=== PATIENT | male | born 1930 | race Caucasian/White ===

== ENCOUNTER 2018-07-22 11:58 | Day surgery (SDC) | payer MEDICARE ==
[2018-07-22] VITALS (9 sets, daily range): BP systolic 131–157; BP diastolic 65–90
[~2018-07-22] VITALS: Ht 172.7 cm; Wt 71.2 kg
[2018-07-22] MEDS ORDERED: sod bicarbonate 150mEq in D5W 1,150 ML IV ONE (12:20)
[2018-07-22] MEDS ORDERED: diphenhydrAMINE 25mg capsule PO ONE (12:20)
[2018-07-22] MEDS ORDERED: OMEG1CAP46 PO (12:42)
[2018-07-22] MEDS ORDERED: FLO0.4C PO (12:42)
[2018-07-22] MEDS ORDERED: ASPI81TA49 PO (12:42)
[2018-07-22] MEDS ORDERED: MULT-955 PO (12:42)
[2018-07-22] MEDS ORDERED: CHOL10002 PO (12:42)
[2018-07-22] MEDS ORDERED: FINA5TAB11 PO (12:42)
[2018-07-22] MEDS ORDERED: ATOR40TA PO (12:42)
[2018-07-22] MEDS ORDERED: ALLO100T PO (12:42)
[2018-07-22] MEDS ORDERED: RANI150C4 PO (12:42)
[2018-07-22] MEDS ORDERED: CARV-50 PO (12:42)
[2018-07-22 13:17] LABS: BASOPHILS % (AUTO) 0.5 % (0-1); EOSINOPHILS # (AUTO) 0.3 X10'3 (0-0.9); EOSINOPHILS % (AUTO) 5.4 % (0-6); HEMOGLOBIN 15.3 g/dl (14.0-17.9); LYMPHOCYTES # (AUTO) 1.7 X10'3 (1.1-4.8); LYMPHOCYTES % (AUTO) 26.2 % (21-51); MEAN CORPUSCULAR HEMOGLOBIN 30.8 PG (27.0-31.0); MEAN CORPUSCULAR VOLUME 90.5 FL (78-98); MEAN PLATELET VOLUME 9.5 FL (7.4-10.4); MONOCYTES # (AUTO) 0.5 X10'3 (0-0.9); MONOCYTES % (AUTO) 8.1 % (2-12); NEUTROPHILS # (AUTO) 3.8 X10'3 (1.8-7.7); NEUTROPHILS % (AUTO) 59.8 % (42-75); PLATELET COUNT 195 X10'3 (140-440); RED BLOOD COUNT 4.97 X10'6 (4.70-6.10); RED CELL DISTRIBUTION WIDTH 14.5 % (11.5-14.5); WHITE BLOOD COUNT 6.3 X10'3 (4.5-11.0)
[2018-07-22 13:32] LABS: ALBUMIN 3.9 G/DL (3.4-5.0); ANION GAP 10 (8-16); BLOOD UREA NITROGEN 16 MG/DL (7-18); BUN/CREATININE RATIO 17.8 (5.4-32.0); CALCIUM 9.1 MG/DL (8.5-10.1); CHLORIDE 104 MMOL/L (99-107); GLUCOSE 87 MG/DL (70-104); MAGNESIUM 1.9 MG/DL (1.5-2.4); POTASSIUM 3.7 MMOL/L (3.5-5.1); SODIUM 141 MMOL/L (135-145); TOTAL CARBON DIOXIDE 26.8 MMOL/L (24-32); eGFR 80 ML/MIN
[2018-07-22 13:33] LABS: INR 1.1 INR
[2018-07-22] MEDS ORDERED: iohexol 350MG/ML 100ml bottle IV ONE ×3 (14:07→15:46)
[2018-07-22] MEDS ORDERED: LIDOcaine 1% (10mg/ml)w/preservative injection 20ml MDV ONE (14:07)
[2018-07-22] MEDS ORDERED: iohexol 350 MG/ML 50ML vial IV ONE (14:07)
[2018-07-22] MEDS ORDERED: fentaNYL/PF 50MCG/1 ML 2ML syringe ONE (14:07)
[2018-07-22] MEDS ORDERED: midazolam 2 mg/2 ml injection ONE ×2 (14:07→15:49)
[2018-07-22] MEDS ORDERED: heparin 1,000unit/ml 10ml vial 10 ML ONE ×2 (14:47→15:41)
[2018-07-22] MEDS ORDERED: clopidogrel 300mg tablet ONE (16:04)
== END 2018-07-22 19:41 | disposition home or self-care (01) ==
LOC: SSTAY O 11:58
PROVIDERS: ATTEND Internal Medicine Cardiovascular Disease
DX: I25.119 Atherosclerotic heart disease of native coronary artery with unspecified angina pectoris (principal); I42.9 Cardiomyopathy, unspecified; I10 Essential (primary) hypertension; E78.5 Hyperlipidemia, unspecified; I44.7 Left bundle-branch block, unspecified; Z86.73 Personal history of transient ischemic attack (TIA), and cerebral infarction without residual deficits; Z98.890 Other specified postprocedural states
CPT/HCPCS: 36415; 80048; 83735; 85025; 85610; 93005; 93458; 99152; 99153; A6257; C1874; C1887; C9600; J1644; J2001; J2250; J3010; J7030; Q0163; Q9967; A4620; C1725; C1760; C1769; C1894

== ENCOUNTER 2018-08-09 09:06 | Day surgery (SDC) | payer MEDICARE ==
[2018-08-09] VITALS (10 sets, daily range): BP systolic 128–151; BP diastolic 62–83
[~2018-08-09] VITALS: Ht 172.7 cm; Wt 71.2 kg
[~2018-08-09 09:06] MED LIST: ALLO100T PO; ASPI81TA49 PO; ATOR40TA PO; CARV-50 PO; CHOL10002 PO; FINA5TAB11 PO; FLO0.4C PO; MULT-955 PO; OMEG1CAP46 PO; RANI150C4 PO
[2018-08-09] MEDS ORDERED: diphenhydrAMINE 25mg capsule PO PRN (09:35)
[2018-08-09] MEDS ORDERED: sod bicarbonate 150mEq in D5W 1,150 ML IV ONE (09:35)
[2018-08-09] MEDS ORDERED: CARV-50 PO (09:40)
[2018-08-09] MEDS ORDERED: CLOP75TA15 PO (09:44)
[2018-08-09] MEDS ORDERED: LOSA25TA96 PO (09:45)
[2018-08-09 10:17] LABS: BASOPHILS % (AUTO) 0.6 % (0-1); EOSINOPHILS # (AUTO) 0.4 X10'3 (0-0.9); EOSINOPHILS % (AUTO) 6.2 % (0-6); HEMATOCRIT 42.7 % (42.0-52.0); HEMOGLOBIN 14.4 g/dl (14.0-17.9); LYMPHOCYTES # (AUTO) 1.6 X10'3 (1.1-4.8); LYMPHOCYTES % (AUTO) 26.3 % (21-51); MEAN CORPUSCULAR HEMOGLOBIN 30.8 PG (27.0-31.0); MEAN CORPUSCULAR HGB CONC 33.6 % (33.0-36.5); MEAN CORPUSCULAR VOLUME 91.5 FL (78-98); MEAN PLATELET VOLUME 9.3 FL (7.4-10.4); MONOCYTES # (AUTO) 0.4 X10'3 (0-0.9); MONOCYTES % (AUTO) 6.5 % (2-12); NEUTROPHILS # (AUTO) 3.7 X10'3 (1.8-7.7); NEUTROPHILS % (AUTO) 60.4 % (42-75); PLATELET COUNT 186 X10'3 (140-440); RED BLOOD COUNT 4.67 X10'6 (4.70-6.10); RED CELL DISTRIBUTION WIDTH 14.5 % (11.5-14.5); WHITE BLOOD COUNT 6.1 X10'3 (4.5-11.0)
[2018-08-09] MEDS ORDERED: verapamil 2.5 mg/ml inj IV ONE (10:22)
[2018-08-09] MEDS ORDERED: nitroGLYCERIN-Tridil 50MG/D5W 250 ML IV ONE (10:22)
[2018-08-09] MEDS ORDERED: fentaNYL/PF 50MCG/1 ML 2ML syringe ONE (10:23)
[2018-08-09] MEDS ORDERED: midazolam 2 mg/2 ml injection ONE (10:23)
[2018-08-09] MEDS ORDERED: heparin 1,000unit/ml 10ml vial 10 ML ONE (10:23)
[2018-08-09] MEDS ORDERED: iohexol 350 MG/ML 50ML vial IV ONE (10:23)
[2018-08-09] MEDS ORDERED: iohexol 350MG/ML 100ml bottle IV ONE ×2 (10:23→11:25)
[2018-08-09 10:26] LABS: ALBUMIN 3.8 G/DL (3.4-5.0); ANION GAP 7 (8-16); BLOOD UREA NITROGEN 21 MG/DL (7-18); BUN/CREATININE RATIO 22.6 (5.4-32.0); CALCIUM 8.8 MG/DL (8.5-10.1); CHLORIDE 105 MMOL/L (99-107); CREATININE 0.93 MG/DL (0.60-1.10); GLUCOSE 85 MG/DL (70-104); MAGNESIUM 1.9 MG/DL (1.5-2.4); POTASSIUM 3.8 MMOL/L (3.5-5.1); SODIUM 140 MMOL/L (135-145); TOTAL CARBON DIOXIDE 28.2 MMOL/L (24-32); eGFR 77 ML/MIN
[2018-08-09 10:57] LABS: INR 1.1 INR; PROTHROMBIN TIME 11.1 SECONDS (9.0-12.0)
[2018-08-09] MEDS ORDERED: LIDOcaine 1% (10mg/ml)w/preservative injection 20ml MDV ONE (11:03)
== END 2018-08-09 15:50 | disposition home or self-care (01) ==
LOC: SSTAY O 09:06
PROVIDERS: ATTEND Internal Medicine Cardiovascular Disease
DX: I25.10 Atherosclerotic heart disease of native coronary artery without angina pectoris (principal); I10 Essential (primary) hypertension; E78.5 Hyperlipidemia, unspecified; I42.9 Cardiomyopathy, unspecified; I44.7 Left bundle-branch block, unspecified; Z86.73 Personal history of transient ischemic attack (TIA), and cerebral infarction without residual deficits; Z98.890 Other specified postprocedural states
CPT/HCPCS: 36415; 80048; 83735; 85025; 85610; 93005; 99152; 99153; C1874; C9600; C9601; J1644; J2001; J2250; J3010; Q0163; Q9967; A4620; C1725; C1769; J3490

== ENCOUNTER 2020-10-11 09:03 | Day surgery (SDC) | payer MEDICARE ==
[2020-10-11] VITALS (9 sets, daily range): BP systolic 130–161; BP diastolic 71–89
[~2020-10-11] VITALS: Ht 172.7 cm; Wt 72.5 kg
[~2020-10-11 09:03] MED LIST changes: +CLOP75TA15 PO; +LOSA25TA96 PO
[2020-10-11] MEDS ORDERED: MAGN400C PO (09:37)
[2020-10-11] MEDS ORDERED: FAMO-127 PO (09:37)
[2020-10-11] MEDS ORDERED: LOSA50TA3 PO (09:37)
[2020-10-11] MEDS ORDERED: NITR0.4T51 SL (09:37)
[2020-10-11] MEDS ORDERED: ceFAZolin 2gm in dextrose, iso 50 ML IV ONE (10:00)
[2020-10-11 10:05] LABS: BASOPHILS % (AUTO) 0.8 % (0-1); EOSINOPHILS # (AUTO) 0.3 X10'3 (0-0.9); EOSINOPHILS % (AUTO) 4.8 % (0-6); HEMATOCRIT 42.2 % (42.0-52.0); HEMOGLOBIN 14.4 g/dl (14.0-17.9); LYMPHOCYTES # (AUTO) 1.4 X10'3 (1.1-4.8); LYMPHOCYTES % (AUTO) 23.6 % (21-51); MEAN CORPUSCULAR HEMOGLOBIN 31.2 PG (27.0-31.0); MEAN CORPUSCULAR HGB CONC 34.2 g/dL (33.0-36.5); MEAN CORPUSCULAR VOLUME 91.3 FL (78-98); MEAN PLATELET VOLUME 9.2 FL (7.4-10.4); MONOCYTES # (AUTO) 0.5 X10'3 (0-0.9); MONOCYTES % (AUTO) 7.7 % (2-12); NEUTROPHILS # (AUTO) 3.7 X10'3 (1.8-7.7); NEUTROPHILS % (AUTO) 63.1 % (42-75); PLATELET COUNT 178 X10'3 (140-440); RED BLOOD COUNT 4.62 X10'6 (4.70-6.10); RED CELL DISTRIBUTION WIDTH 13.9 % (11.5-14.5); WHITE BLOOD COUNT 5.9 X10'3 (4.5-11.0)
[2020-10-11 10:12] LABS: ALBUMIN 3.8 G/DL (3.4-5.0); ANION GAP 6 (8-16); BLOOD UREA NITROGEN 15 MG/DL (7-18); BUN/CREATININE RATIO 15.3 (5.4-32.0); CALCIUM 9.1 MG/DL (8.5-10.1); CHLORIDE 106 MMOL/L (99-107); CREATININE 0.98 MG/DL (0.60-1.10); GLUCOSE 103 MG/DL (70-104); MAGNESIUM 2.1 MG/DL (1.5-2.4); POTASSIUM 4.3 MMOL/L (3.5-5.1); SODIUM 140 MMOL/L (135-145); TOTAL CARBON DIOXIDE 27.6 MMOL/L (24-32); eGFR 72 ML/MIN
[2020-10-11] MEDS ORDERED: proCHLORperazine 10 MG/2 ml inj ONE (10:40)
[2020-10-11] MEDS ORDERED: fentaNYL/PF 50MCG/1 ML 2ML syringe ONE ×2 (10:40→11:25)
[2020-10-11] MEDS ORDERED: LIDOcaine 1% W/epiNEPHrine 1:100,000 20ml vial ONE (10:40)
[2020-10-11] MEDS ORDERED: vancomycin 1,000mg inj ONE (10:40)
[2020-10-11] MEDS ORDERED: midazolam 2 mg/2 ml injection ONE ×2 (10:40→11:25)
[2020-10-11] MEDS ORDERED: iohexol 350 MG/ML 50ML vial IV ONE (11:27)
[2020-10-11] MEDS ORDERED: iohexol 350MG/ML 100ml bottle IV ONE (11:28)
[2020-10-11] MEDS ORDERED: normal saline 1000ml 1,000 ML IV SCH (13:20)
== END 2020-10-11 15:30 | disposition home or self-care (01) ==
LOC: SSTAY O 09:03
PROVIDERS: ATTEND Internal Medicine Cardiovascular Disease
DX: I42.0 Dilated cardiomyopathy (principal); I25.5 Ischemic cardiomyopathy; I47.2 Ventricular tachycardia; I44.7 Left bundle-branch block, unspecified; I25.10 Atherosclerotic heart disease of native coronary artery without angina pectoris; I10 Essential (primary) hypertension; E78.5 Hyperlipidemia, unspecified; Z95.5 Presence of coronary angioplasty implant and graft; Z86.73 Personal history of transient ischemic attack (TIA), and cerebral infarction without residual deficits; Z79.899 Other long term (current) drug therapy; Z79.82 Long term (current) use of aspirin
CPT/HCPCS: 33225; 33249; 36415; 71045; 80048; 83735; 85025; 85610; 93005; 99152; 99153; C1769; C1882; C1887; C1894; C1895; C1900; J0780; J2250; J3010; J3370; J7030; Q9967; A4565; A6258; C1777; C1898

== ENCOUNTER 2020-10-22 12:18 | Emergency (ER) | payer MEDICARE ==
[~2020-10-22] VITALS: Ht 172.7 cm; Wt 68.2 kg
[~2020-10-22 12:18] MED LIST changes: +FAMO-127 PO; -LOSA25TA96 PO; +LOSA50TA3 PO; +MAGN400C PO; +NITR0.4T51 SL; -RANI150C4 PO
[2020-10-22] MEDS ORDERED: LIDOcaine 1% w/epiNEPHrine 1:200,000 30ml vial IM ONE (13:05)
[2020-10-22] MEDS ORDERED: LIDOcaine 1% W/epiNEPHrine 1:200,000 10ml vial IJ ONE ×2 (13:15→13:20)
--- NOTE | 2020-10-22 13:47 | NUR ---
spoke to katherin pt daughter at [phone].uptdated the daughter about the poc.informe dthat pt is stable.pt has given verbal consent to update the daughter.
[2020-10-22 14:46] VITALS: BP 128/85
== END 2020-10-22 14:47 | disposition home or self-care (01) ==
LOC: ER 12:19
DX: J93.9 Pneumothorax, unspecified (principal); R06.02 Shortness of breath; R05 Cough; I25.10 Atherosclerotic heart disease of native coronary artery without angina pectoris; Z95.0 Presence of cardiac pacemaker; Z79.82 Long term (current) use of aspirin; Z79.899 Other long term (current) drug therapy
CPT/HCPCS: 32551; 71045; 99285

== ENCOUNTER 2020-10-23 14:44 | Emergency (ER) | payer MEDICARE ==
[~2020-10-23] VITALS: Ht 172.7 cm; Wt 69.7 kg
--- NOTE | 2020-10-23 15:42 | NUR ---
REMOVED THORAVENT FROM CHEST, TOLERATED WELL. APLLIED VASELINE GAUZE AND TEGADERM. WILL CONTINUE TO MONITOR.
[2020-10-23 16:51] VITALS: BP 164/87
== END 2020-10-23 16:54 | disposition home or self-care (01) ==
LOC: ER 14:44
DX: J93.9 Pneumothorax, unspecified (principal); I25.10 Atherosclerotic heart disease of native coronary artery without angina pectoris; Z95.0 Presence of cardiac pacemaker; Z79.82 Long term (current) use of aspirin; Z79.899 Other long term (current) drug therapy
CPT/HCPCS: 71045; 71046; 99283